=== PATIENT | male | born 1970 ===

== ENCOUNTER → 2020-08-18 16:28 | Outpatient (CLI) | payer BC, SELFPAY ==
[2020-08-18 17:47] LABS: Cholesterol 199 mg/dL (140-199); HDL Cholesterol 53 mg/dL (40-60); LDL Cholesterol Calculated 125 mg/dL (<100); Triglycerides 103 mg/dL (35-150)
[2020-08-18 18:54] LABS: Vitamin D 25 Hydroxy (D3) 39.4 ng/mL (30.0-100.0)
== END ==
PROVIDERS: PCP Student in an Organized Health Care Education/Training Program; Referring Provider Student in an Organized Health Care Education/Training Program; Visit Provider Student in an Organized Health Care Education/Training Program
DX: E55.9 Vitamin D deficiency, unspecified (principal); Z13.220 Encounter for screening for lipoid disorders
CPT/HCPCS: 36415; 80061; 82306

== ENCOUNTER → 2020-11-28 07:53 | Outpatient (CLI) | payer BC, SELFPAY ==
--- NOTE | 2020-11-28 07:54 | DI.MRI.S_ITS ---
PROCEDURE: MR SHOULDER LT WO CON INDICATIONS: Shoulder pain with limited ROM TECHNIQUE: Noncontrast oblique coronal T2 fast spin echo with fat saturation, oblique sagittal T1 spin echo and T2 fast spin echo with fat saturation, axial T1 spin echo and T2 fast spin echo with fat saturation through the shoulder. COMPARISON: None. FINDINGS: Image quality: Excellent. Rotator cuff: There is mild supraspinatus tendinosis and low-grade bursal surface fraying without a discrete tear. Mild infraspinatus tendinosis is also seen. The teres minor tendon is intact. The subscapularis tendon is intact. There is no significant atrophy of the rotator cuff musculature. Bones and bursae: No acute trabecular bone injury is seen. Small chronic traction cystic changes are seen at the posterosuperior humeral head near the infraspinatus tendon insertion. Small areas of cartilage loss are seen at the anteroinferior glenoid and the central portion of the inferior glenoid. There is mild degenerative spurring of the anteroinferior glenoid rim and the inferior humeral head. Mild degenerative changes are seen in the acromioclavicular joint. There is no significant subacromial/subdeltoid bursal fluid. Minimal glenohumeral joint fluid is present. Capsule and soft tissues: There is a suspected nondisplaced tear of the anteroinferior glenoid labrum with fluid signal undercutting the base and adjacent cartilage loss. The tear extends to the anterior labrum into the superior labrum. No significant paralabral cyst is seen at. The posterior labrum is grossly intact. The biceps long head tendon is intact. There is effacement of the normal fat signal in the rotator interval. The inferior glenohumeral ligament appears thickened and with mildly increased signal. The middle glenohumeral ligament also appears similar. IMPRESSION: 1. Chronic nondisplaced tearing of the anteroinferior labrum extending to the anterior and superior labrum. Focal moderate to high-grade cartilage loss and degenerative spurring are seen in the adjacent portions of the anteroinferior glenoid. 2. Mild supraspinatus and infraspinatus tendinosis with superimposed low-grade bursal surface fraying of the distal supraspinatus tendon fibers without a discrete tear. 3. Mild acromioclavicular joint osteoarthrosis. 4. Effacement of the rotator interval fat and thickening and increased signal of the inferior and middle glenohumeral ligaments can be seen in the setting of the clinical syndrome of adhesive capsulitis. Dictated by: Juan Manuel Castro M.D. on 11/28/2020 at 9:03 Approved by: Juan Manuel Castro M.D. on 11/28/2020 at 9:12
== END ==
PROVIDERS: PCP Student in an Organized Health Care Education/Training Program; Referring Provider Student in an Organized Health Care Education/Training Program; Visit Provider Student in an Organized Health Care Education/Training Program
DX: M25.512 Pain in left shoulder (principal); M19.012 Primary osteoarthritis, left shoulder; S43.492A Other sprain of left shoulder joint, initial encounter
CPT/HCPCS: 73221

== ENCOUNTER → 2022-08-05 09:12 | Outpatient (CLI) | payer BC, SELFPAY ==
[2022-08-05 10:14] LABS: Add Manual Diff / Slide Review NO; Basophils Absolute Auto 0 /uL (0-100); Basophils Percent Auto 0.8 % (0-2); Eosinophils Absolute Auto 100 /uL (0-450); Eosinophils Percent Auto 2.4 % (2-4); Hematocrit 41.8 % (41-53); Hemoglobin 14.9 g/dL (13.5-17.5); Lymphocytes Absolute Auto 1600 /uL (1100-4500); Lymphocytes Percent Auto 35.4 % (25-40); Mean Corpuscular HGB Conc 35.5 % (30-36); Mean Corpuscular Hemoglobin 31.7 PG (26-34); Mean Corpuscular Volume 89.1 fL (80-100); Monocytes Absolute Auto 600 /uL (0-900); Monocytes Percent Auto 12.7 % (3-14); Neutrophils Absolute Auto 2200 /uL (1500-7000); Neutrophils Percent Auto 48.7 % (50-75); Platelet Count 216 X10^3/uL (150-400); Red Blood Cell Count 4.69 X10^6/uL (4.5-5.9); Red Cell Distribution Width 13.1 % (11.6-14.8); White Blood Cell Count 4.5 X10^3/uL (4.5-11.0)
[2022-08-05 10:22] LABS: Alanine Aminotransferase 27 IU/L (<50); Albumin 4.1 g/dL (3.5-5.0); Albumin Globulin Ratio 1.5 (1.0-2.8); Alkaline Phosphatase 43 U/L (38-126); Aspartate Aminotransferase 33 IU/L (17-59); BUN Creatinine Ratio 13.8 (6-22); Bilirubin Total 1.2 mg/dL (0.2-1.3); Blood Urea Nitrogen 11 mg/dL (9-20); Calcium 9.1 mg/dL (8.4-10.2); Carbon Dioxide 32 mmol/L (22-32); Chloride 104 mmol/L (98-107); Cholesterol 199 mg/dL (140-199); Estimated Glomerular Filt Rate > 60 mL/min (>60); Globulin 2.8 g/dL (1.7-4.1); Glucose 86 mg/dL (70-100); HDL Cholesterol 44 mg/dL (40-60); HEMOLYSIS < 15 (0-50); LDL Cholesterol Calculated 132 mg/dL (<100); Potassium 4.8 mmol/L (3.4-5.1); Sodium 140 mmol/L (137-145); Total Protein 6.9 g/dL (6.3-8.2); Triglycerides 113 mg/dL (35-150)
== END ==
PROVIDERS: PCP Student in an Organized Health Care Education/Training Program; Referring Provider Student in an Organized Health Care Education/Training Program; Visit Provider Student in an Organized Health Care Education/Training Program
DX: E78.00 Pure hypercholesterolemia, unspecified (principal); Z13.0 Encounter for screening for diseases of the blood and blood-forming organs and certain disorders involving the immune mechanism; Z13.1 Encounter for screening for diabetes mellitus
CPT/HCPCS: 36415; 80053; 80061; 85025

== ENCOUNTER → 2023-06-26 14:18 | Outpatient (CLI) | payer OTHER, SELFPAY ==
--- NOTE | 2023-06-26 14:41 | DI.MRI.S_ITS ---
PROCEDURE: MR KNEE RT WO CON INDICATIONS: internal derangement of right knee TECHNIQUE: Noncontrast sagittal PD fast spin echo and T2 fast spin echo with fat saturation, sagittal 3-D FLASH with fat saturation; coronal T1 spin echo and PD fast spin echo with fat saturation, and axial PD fast spin echo with fat saturation through the knee. COMPARISON: [facility] [place], CR, XR KNEE 4+ VIEWS RIGHT, 06/15/2023, 14:42. FINDINGS: Image quality: Excellent. Menisci: The medial and lateral menisci demonstrate normal morphology and internal signal. The meniscal root ligaments appear intact. Cruciate ligaments: The anterior cruciate ligament is torn with edema and discontinuous fibers. The posterior cruciate ligament is intact. Medial structures: There is grade 1 sprain of the medial collateral ligament. There is mild sprain of the semimembranosus tendon insertions. No meniscocapsular separation. Visualized portions of the pes anserinus tendons appear normal. No abnormal bursal fluid. Lateral structures: The lateral collateral ligament and the biceps femoris tendon appear intact. There is partial tear/sprain of the popliteus tendon and contusion of the posterior lateral joint capsule. Iliotibial band appears normal. Anterior structures: Insall-Salvati index TL/PL = 1.29. The quadriceps and patellar tendons appear intact. There is lateral tilt of patella. There is mild edema in medial patellofemoral ligament/patellar retinaculum, consistent with partial tear. No femoral trochlear dysplasia or ventral trochlear prominence. No edema in the infrapatellar fat pad. Bones and cartilage: There is bone marrow edema in the anterior aspect of the lateral femoral condyle and posterior aspect of the lateral tibial plateau, consistent with bone contusions. No displaced fractures. The cartilage of the medial and lateral femorotibial compartments, as well as the patellofemoral compartment, appears normal in thickness. Joint space: There is small to moderate knee joint effusion. There is a [id number] sized multiloculated Morales's cyst. Normal appearing synovial plicae are incidentally noted. IMPRESSION: 1. ACL tear. 2. Grade 1 sprain of MCL. 3. Mild sprain of the semimembranosus tendon insertions. 4. Partial tear/sprain of the popliteus tendon with associated contusion of the posterior lateral joint capsule. 5. Bone contusions involving the anterior aspect of the lateral femoral condyle and posterior aspect of the lateral tibial plateau. 6. [id number] knee joint effusion. 7. A Morales's cyst. 8. Lateral tilt of patella. There is mild edema in the medial patellofemoral ligament and patellar retinaculum, consistent with partial tear. Dictated by: Twyla Vicente M.D. on 06/27/2023 at 8:20 Approved by: Twyla Vicente M.D. on 06/27/2023 at 8:36
== END ==
PROVIDERS: PCP Student in an Organized Health Care Education/Training Program; Referring Provider Orthopaedic Surgery; Visit Provider Orthopaedic Surgery
DX: S83.511A Sprain of anterior cruciate ligament of right knee, initial encounter (principal); S83.411A Sprain of medial collateral ligament of right knee, initial encounter; S76.811A Strain of other specified muscles, fascia and tendons at thigh level, right thigh, initial encounter; S80.01XA Contusion of right knee, initial encounter; M23.91 Unspecified internal derangement of right knee; M25.461 Effusion, right knee; M71.21 Synovial cyst of popliteal space [Baker], right knee
CPT/HCPCS: 73721